=== PATIENT | female | born 1990 | race Caucasian/White ===

== ENCOUNTER 2017-07-17 19:04 | Emergency (ER) | payer SELFPAY ==
[~2017-07-17] VITALS: Ht 175.3 cm; Wt 109.8 kg
[2017-07-17 20:03] LABS: URINE BILIRUBIN - DIPSTICK NEGATIVE (NEGATIVE); URINE BLOOD DIPSTICK NEGATIVE (NEGATIVE); URINE CLARITY CLEAR; URINE COLOR YELLOW; URINE GLUCOSE - DIPSTICK NEGATIVE (NEGATIVE); URINE KETONE NEGATIVE (NEGATIVE); URINE LEUK ESTERASE NEGATIVE (NEGATIVE); URINE NITRITE - DIPSTICK NEGATIVE (Negative); URINE PROTEIN - DIPSTICK NEGATIVE (NEG-TRACE); URINE SPECIFIC GRAVITY >=1.030; URINE UROBILINOGEN - DIPSTICK 0.2 E.U./dL (0.2)
[2017-07-17] MEDS ORDERED: LORTAB 10-325 M1 TAB PO (20:08)
[2017-07-17] MEDS ORDERED: AMOXICILLIN500 MG PO (20:08)
[2017-07-17 21:09] VITALS: BP 116/57
== END 2017-07-17 21:09 | disposition home or self-care (01) | DRG 159 ==
LOC: ED 19:04
PROVIDERS: Emergency Medicine
DX: K04.7 Periapical abscess without sinus (principal); F17.210 Nicotine dependence, cigarettes, uncomplicated; G43.909 Migraine, unspecified, not intractable, without status migrainosus; S02.5XXA Fracture of tooth (traumatic), initial encounter for closed fracture

== ENCOUNTER 2017-11-18 17:16 | Emergency (ER) | payer SELFPAY ==
[~2017-11-18] VITALS: Ht 175.3 cm; Wt 109.0 kg
[~2017-11-18 17:16] MED LIST: AMOXICILLIN500 MG PO; LORTAB 10-325 M1 TAB PO
[2017-11-18] MEDS ORDERED: ULTRAM50 M1 PO (17:47)
[2017-11-18] MEDS ORDERED: BACTRIM DS1 TAB PO (17:47)
[2017-11-18 17:50] VITALS: BP 135/77
== END 2017-11-18 17:59 | disposition home or self-care (01) | DRG 603 ==
LOC: ED 17:16
DX: L02.216 Cutaneous abscess of umbilicus (principal); B96.89 Other specified bacterial agents as the cause of diseases classified elsewhere